=== PATIENT | female | born 1970 | race American Indian/Alaskan Native ===

== ENCOUNTER 2018-11-28 19:22 | Emergency (ER) | payer OTHER ==
[~2018-11-28] VITALS: Ht 162.6 cm; Wt 77.1 kg
[~2018-11-28 19:22] MED LIST: PROTONIX40 MG PO; VISTARIL50 MG PO
--- NOTE | 2018-11-30 00:33 | EKG ---
[facility] [address] [facility] [place] [address] Signed Normal sinus rhythm Rightward axis Prolonged QT Abnormal ECG No previous ECGs available Confirmed by MARCUS MORRIS MD ([id number]) on 11/30/2018 12:33:04 AM Electronically Signed By: MARCUS MORRIS MD 11/30/18 0033 PATIENT NAME: SIERRA BIANCHIDEUCE Electrocardiogram DATE OF : 68 PHYSICIAN: MARCUS MORRIS MD REPORT #: [id number] REPORT IS CONFIDENTIAL AND NOT TO BE RELEASED WITHOUT AUTHORIZATION
== END 2018-11-28 22:35 | disposition home or self-care (01) ==
LOC: ED 19:22
PROC: 0T9B30Z Drainage of Bladder with Drainage Device, Percutaneous Approach (ICD-10-PCS; principal; 2018-11-28)
DX: F10.129 Alcohol abuse with intoxication, unspecified (principal); Y90.8 Blood alcohol level of 240 mg/100 ml or more; F90.9 Attention-deficit hyperactivity disorder, unspecified type; J45.909 Unspecified asthma, uncomplicated; F41.9 Anxiety disorder, unspecified; F17.200 Nicotine dependence, unspecified, uncomplicated; Z79.899 Other long term (current) drug therapy
CPT/HCPCS: 51701; 70450; 71045; 80053; 80176; 81001; 82140; 84484; 84703; 85025; 93005; 93010; 96361; 96372; 96374; 99284-25; G0480; J1200; J1630; J2060; J2765; J7030

== ENCOUNTER 2020-02-09 20:05 | Emergency (ER) | payer OTHER ==
[~2020-02-09] VITALS: Ht 162.6 cm; Wt 77.1 kg
[~2020-02-09 20:05] MED LIST changes: +CHLORDIAZEPOXID25 MG PO; +RITALIN20 MG PO
[2020-02-09] MEDS ORDERED: FLUTICASONE-SA1 EAC4 PO (20:47)
[2020-02-09] MEDS ORDERED: SPIRIVA18 MCG INH (20:47)
[2020-02-09] MEDS ORDERED: VENTOLIN HFA18 GM INH (20:50)
[2020-02-09] MEDS ORDERED: THEOPHYLLINE A300 MG PO (20:51)
[2020-02-09] MEDS ORDERED: IPRAT-ALBUT 0.5-3 ML INH (20:51)
== END 2020-02-09 21:49 | disposition home or self-care (01) ==
LOC: ED 20:05
DX: F15.10 Other stimulant abuse, uncomplicated (principal); F10.10 Alcohol abuse, uncomplicated; F41.9 Anxiety disorder, unspecified; F90.9 Attention-deficit hyperactivity disorder, unspecified type; J45.909 Unspecified asthma, uncomplicated; F17.200 Nicotine dependence, unspecified, uncomplicated; Z79.899 Other long term (current) drug therapy
CPT/HCPCS: 80053; 80176; 81001; 84443; 85025; 99283; G0480

== ENCOUNTER 2020-03-27 12:33 | Emergency (ER) | payer OTHER ==
[~2020-03-27] VITALS: Ht 162.6 cm; Wt 77.1 kg
[~2020-03-27 12:33] MED LIST changes: +FLUTICASONE-SA1 EAC4 PO; +IPRAT-ALBUT 0.5-3 ML INH; +SPIRIVA18 MCG INH; +THEOPHYLLINE A300 MG PO; +VENTOLIN HFA18 GM INH
== END 2020-03-28 00:41 | disposition home or self-care (01) ==
LOC: ED 12:33
DX: R41.82 Altered mental status, unspecified (principal); F10.129 Alcohol abuse with intoxication, unspecified; F15.10 Other stimulant abuse, uncomplicated; F41.9 Anxiety disorder, unspecified; F90.9 Attention-deficit hyperactivity disorder, unspecified type; J45.909 Unspecified asthma, uncomplicated; F17.200 Nicotine dependence, unspecified, uncomplicated; Y90.8 Blood alcohol level of 240 mg/100 ml or more; Z79.899 Other long term (current) drug therapy
CPT/HCPCS: 80048; 80053; 81001; 83690; 84703; 85025; 94640; 96374; 96375; 99285-25; G0480; J2060; J3411; J7030